=== PATIENT | female | born 1985 | race Caucasian/White ===

== ENCOUNTER 2017-01-17 16:16 | Emergency (ER) | payer SELFPAY ==
--- NOTE | 2017-01-17 16:33 | ED.PDOC ---
History of Present Illness - General Chief Complaint: Abdominal Pain Stated Complaint: abdominal pain Time Seen by Provider: 01/17/17 16:25 Information Source: patient, RN notes reviewed, Vital Signs reviewed Exam Limitations: no limitations - History of Present Illness Initial Comments: Patient comes in with c/o RLQ pain for the past 3 weeks. Getting worse. Last night had severe pain during intercourse with her . No fever or chills. + nausea, no vomiting. Diarrhea X 1 month. No urinary symptoms. No vaginal discharge. She also has been having R hip pain for about a month. It pops and grinds and feels like it is going to lock up. Abdominal Pain Onset Location: RUQ Pain Radiation: no radiation Quality: severe, dull, stabbing Timing/Duration: getting worse - over past 3 weeks Improving Factors: nothing Worsening Factors: movement, other - intercourse Associated Symptoms: diarrhea, nausea/vomiting Review of Systems - Review of Systems Constitutional: Denies: chills, fever, malaise EENTM: States: no symptoms reported Respiratory: States: no symptoms reported Cardiology: States: no symptoms reported Gastrointestinal/Abdominal: States: see HPI, abdominal pain, diarrhea, nausea. Denies: constipation, vomiting Genitourinary: States: no symptoms reported. Denies: discharge, dysuria, frequency Musculoskeletal: States: joint pain - R hip Skin: States: no symptoms reported Neurological: States: no symptoms reported. Denies: headache All other Systems: No Change from Baseline Past Medical History (General) - Patient Medical History Hx Seizures: No Hx Stroke: No Hx Dementia: No Hx Asthma: No Hx of COPD: No Hx Cardiac Disorders: No Hx Congestive Heart Failure: No Hx Pacemaker: No Hx Hypertension: No Hx Thyroid Disease: No Hx Diabetes: No Hx Gastroesophageal Reflux: No Hx Renal Disease: No Hx Cancer: No Hx of HIV: No Hx Hepatitis C: No Hx MRSA: No - Vaccination History Hx Tetanus, Diphtheria Vaccination: Yes Hx Influenza Vaccination: No Hx Pneumococcal Vaccination: No - Social History Hx Tobacco Use: No Hx Chewing Tobacco Use: No Hx Alcohol Use: No Hx Substance Use: No Hx Substance Use Treatment: No Hx Depression: Yes - not on medication Hx Physical Abuse: No Hx Emotional Abuse: No Hx Suspected Abuse: No - Female History Hx Last Menstrual Period: 06/10/12 Patient : No Expected Date of Delivery:: 03/17/13 Family Medical History - Family History Mother Family History: Unknown Living Status: Still Living Hx Family;Other: COPD Physical Exam - Physical Exam General Appearance: Alert, No apparent distress, Ill Appearing, Well Developed, Well Groomed, Well Hydrated, Well Nourished Neck: supple, normal inspection Respiratory: chest non-tender, lungs clear, normal breath sounds, no respiratory distress, no accessory muscle use Cardiovascular/Chest: regular rate, rhythm, no gallop, no JVD, no murmur Gastrointestinal/Abdominal: normal bowel sounds, soft, no organomegaly, no pulsatile mass, rebound - RLQ, tenderness - RLQ Pelvic Exam: normal external exam, tender w/ cervical motion, tender adnexa - bilaterally R>L Extremity: other - Pain in R hip with ROM Neurologic: no motor/sensory deficits, alert, normal mood/affect, oriented x 3 Skin Exam: normal color, warm/dry Progress - Progress Progress: 01/17/17 18:04 Discussed PID causes and treatment with patient. Will give first doses of antibiotics here. Discussed normal hip x-ray and that her pain is most likely ligamentous and recommended ice, heat, rest and ibuprofen. - Results/Orders Results/Orders: Laboratory Tests 01/17/17 01/17/17 01/17/17 16:20 16:20 17:10 WBC 11.1 H RBC 5.14 Hgb 14.9 Hct 44.0 MCV 85.7 MCH 29.0 MCHC 33.9 RDW 12.6 Plt Count 271 MPV 8.5 Absolute Neuts (auto) 6.80 Absolute Lymphs (auto) 3.20 Absolute Monos (auto) 0.80 Absolute Eos (auto) 0.10 Absolute Basos (auto) 0.10 Neutrophils % 61.4 Lymphocytes % 29.0 Monocytes % 7.7 Eosinophils % 1.3 Basophils % 0.6 Sodium Potassium Chloride Carbon Dioxide Anion Gap BUN Creatinine BUN/Creatinine Ratio Random Glucose Serum Osmolality Calcium Total Bilirubin AST ALT Alkaline Phosphatase Serum Total Protein Albumin Globulin Albumin/Globulin Ratio Urine Color Yellow Urine Appearance Clear Urine pH 5.5 Ur Specific [place] 1.025 Urine Protein Negative Urine Glucose (UA) Negative Urine Ketones Negative Urine Blood Small H Urine Nitrite Negative Urine Bilirubin Negative Urine Urobilinogen 0.2 Ur Leukocyte Esterase Negative Urine RBC 1-3 Urine WBC 1-3 Ur Epithelial Cells 5-10 Amorphous Sediment 1+ Urine Bacteria 1+ Urine HCG, Qual Negative 01/17/17 17:10 WBC RBC Hgb Hct MCV MCH MCHC RDW Plt Count MPV Absolute Neuts (auto) Absolute Lymphs (auto) Absolute Monos (auto) Absolute Eos (auto) Absolute Basos (auto) Neutrophils % Lymphocytes % Monocytes % Eosinophils % Basophils % Sodium 136 Potassium 3.7 Chloride 100 L Carbon Dioxide 27 Anion Gap 12.7 BUN 9 Creatinine 0.63 BUN/Creatinine Ratio 14.3 Random Glucose 84 Serum Osmolality 269.8 L Calcium 9.4 Total Bilirubin 0.8 AST 21 ALT 17 Alkaline Phosphatase 52 Serum Total Protein 9.2 H Albumin 5.1 Globulin 4.1 H Albumin/Globulin Ratio 1.2 Urine Color Urine Appearance Urine pH Ur Specific [place] Urine Protein Urine Glucose (UA) Urine Ketones Urine Blood Urine Nitrite Urine Bilirubin Urine Urobilinogen Ur Leukocyte Esterase Urine RBC Urine WBC Ur Epithelial Cells Amorphous Sediment Urine Bacteria Urine HCG, Qual - EKG/XRAY/CT XRAY: hip - normal per Radiologist Departure - Departure Clinical Impression: Pelvic inflammatory disease (PID), Acute right hip pain Time of Disposition: 18:11 Disposition: Discharge to Home or Self Care Condition: Fair Departure Forms: ED Discharge - Pt. Copy, Patient Portal Self Enrollment Instructions: DI for Pelvic Inflammatory Disease Diet: resume usual diet Activity: increase activity as tolerated Referrals: Charlene Diaz NP [Primary Care Provider] - 1-2 Weeks Prescriptions: Doxycycline Hyclate 100 mg PO BID #28 cap metroNIDAZOLE [Flagyl] 500 mg PO BID #28 tab Home Medications: Ambulatory Orders Cyclobenzaprine HCl [Flexeril] 5 mg PO TID PRN #9 tab 03/01/14 Ibuprofen [Motrin] 600 mg PO Q8H PRN #15 tab 03/01/14 Ondansetron Tab [Zofran Tab] 4 mg PO BID PRN #8 tab 03/01/14 Ciprofloxacin [Cipro] 500 mg PO BID #20 tab 03/02/14 Hyoscyamine Sulfate [Levsin] 0.125 mg PO TID #30 tab 03/02/14 Phenazopyridine HCl [Pyridium] 200 mg PO TID #10 tab 09/20/15 Sulfamethoxazole-Trimethoprim [Bactrim Ds 800-160 mg] 1 tab PO BID #20 tab 09/19 Doxycycline Hyclate 100 mg PO BID #28 cap 01/17/17 metroNIDAZOLE [Flagyl] 500 mg PO BID #28 tab 01/17/17
[2017-01-17 16:56] VITALS: TEMP 98.5
--- NOTE | 2017-01-17 17:39 | RAD ---
EXAM DESCRIPTION: Hip,Right 2 Views CLINICAL HISTORY: R hip pain COMPARISON: None. TECHNIQUE: 2 views right FINDINGS: I see no bone joint or soft tissue abnormality. IMPRESSION: Normal right hip. Electronically signed by: Griffin Brito MD 01/17/2017 5:38 PM CDT
[2017-01-17] MEDS ORDERED: metroNIDAZOLE 500 MG TAB PO ONE (18:06)
[2017-01-17] MEDS ORDERED: DOXYCYCLINE HYCLATE CAP 100 MG CAP PO ONE (18:06)
[2017-01-17] MEDS ORDERED: LIDOCAINE 1% 10 ML VIAL INJ ONE (18:10)
[2017-01-17 18:29] VITALS: BP 106/70; O2SAT 98
== END 2017-01-17 18:39 | disposition home or self-care (01) ==
LOC: ER 16:16
DX: N73.9 Female pelvic inflammatory disease, unspecified (principal); M25.551 Pain in right hip
CPT/HCPCS: 73502; 80053; 81001; 81025; 85025; 87210; 87491; 87591; J0696

== ENCOUNTER 2017-05-06 07:27 | Emergency (ER) | payer SELFPAY ==
[2017-05-06 07:42] VITALS: TEMP 98.9
[2017-05-06] MEDS ORDERED: KETOROLAC TROMETHAMINE INJ 30 MG/ML VIAL IM ONE (07:59)
[2017-05-06] MEDS ORDERED: ALUM & MAG HYDROX-SIMETHICONE 30 ML, LIDOCAINE VISCOUS 2% 15 ML PO ONE ×2 (08:05)
[2017-05-06] MEDS ORDERED: LIDOCAINE HCL 2% (MOUTH-THROAT) 15 ML UD ONE (08:09)
[2017-05-06] MEDS ORDERED: ALUM & MAG HYDROX-SIMETHICONE 30 ML UD ONE (08:09)
[2017-05-06] MEDS ORDERED: CIPROFLOXACIN 500 MG TAB PO ONE (08:23)
[2017-05-06] MEDS ORDERED: cefTRIAXone SODIUM 1 GM VIAL IM ONE (08:23)
--- NOTE | 2017-05-06 08:30 | ED.PDOC ---
History of Present Illness - General Chief Complaint: Abdominal Pain Stated Complaint: RLQ pain, right flank pain, painful urination Time Seen by Provider: 05/06/17 07:43 Source: patient Exam Limitations: no limitations - History of Present Illness Initial Comments: the patient is a 32-year-old female presenting to the emergency room secondary to 24 hours of suprapubic discomfort along with urinary frequency and severe dysuria. She has been taking some AZO and ibuprofen with minimal relief. She has had urinary tract infections in the past. The pain is a little more towards the right side and then center. She has already had her appendix out in the past. She does have a history of irritable bowel syndrome. She also has a history of gastritis but most of the abdominal discomfort is in the lower abdomen rather than upper. No nausea or vomiting. No fevers. No vaginal discharge. No itching. No rebound or peritoneal signs. Timing/Duration: 24 hours Severity: moderate Improving Factors: nothing Worsening Factors: nothing Associated Symptoms: malaise Allergies/Adverse Reactions: Allergies NO KNOWN ALLERGY Allergy (Verified 05/06/17 07:41) Home Medications: Ambulatory Orders Cyclobenzaprine HCl [Flexeril] 5 mg PO TID PRN #9 tab 03/01/14 Ibuprofen [Motrin] 600 mg PO Q8H PRN #15 tab 03/01/14 Ondansetron Tab [Zofran Tab] 4 mg PO BID PRN #8 tab 03/01/14 Ciprofloxacin [Cipro] 500 mg PO BID #20 tab 03/02/14 Hyoscyamine Sulfate [Levsin] 0.125 mg PO TID #30 tab 03/02/14 Phenazopyridine HCl [Pyridium] 200 mg PO TID #10 tab 09/20/15 Sulfamethoxazole-Trimethoprim [Bactrim Ds 800-160 mg] 1 tab PO BID #20 tab 09/19 Doxycycline Hyclate 100 mg PO BID #28 cap 01/17/17 metroNIDAZOLE [Flagyl] 500 mg PO BID #28 tab 01/17/17 Cephalexin Monohydrate [Keflex] 500 mg PO Q8H #20 cap 05/06/17 Ciprofloxacin [Cipro] 500 mg PO BID #14 tab 05/06/17 Famotidine 20 mg PO DAILY #30 tab 05/06/17 Review of Systems - Review of Systems Constitutional: States: no symptoms reported EENTM: States: no symptoms reported Respiratory: States: no symptoms reported Cardiology: States: no symptoms reported Gastrointestinal/Abdominal: States: see HPI Genitourinary: States: dysuria, frequency, pain Musculoskeletal: States: no symptoms reported Skin: States: no symptoms reported Neurological: States: no symptoms reported Endocrine: States: no symptoms reported All other Systems: No Change from Baseline Past Medical History (General) - Patient Medical History Hx Seizures: No Hx Stroke: No Hx Dementia: No Hx Asthma: No Hx of COPD: No Hx Cardiac Disorders: No Hx Congestive Heart Failure: No Hx Pacemaker: No Hx Hypertension: No Hx Thyroid Disease: No Hx Diabetes: No Hx Gastroesophageal Reflux: No Hx Renal Disease: No Hx Cancer: No Hx of HIV: No Hx Hepatitis C: No Hx MRSA: No Surgical History: appendectomy, cholecystectomy - Vaccination History Hx Tetanus, Diphtheria Vaccination: Yes Hx Influenza Vaccination: No Hx Pneumococcal Vaccination: No - Social History Hx Tobacco Use: No Hx Chewing Tobacco Use: No Hx Alcohol Use: No Hx Substance Use: No Hx Substance Use Treatment: No Hx Depression: Yes - not on medication Hx Physical Abuse: No Hx Emotional Abuse: No Hx Suspected Abuse: No - Female History Hx Last Menstrual Period: 06/10/12 Patient : No Expected Date of Delivery:: 03/17/13 Family Medical History - Family History Mother Family History: Unknown Living Status: Still Living Hx Family;Other: COPD Physical Exam - Physical Exam General Appearance: Alert Eye Exam: bilateral normal Ears, Nose, Throat: normal ENT inspection, normal pharynx Neck: supple Respiratory: no respiratory distress, no accessory muscle use Cardiovascular/Chest: normal peripheral pulses, no edema Peripheral Pulses: radial,right: 2+, radial,left: 2+ Gastrointestinal/Abdominal: other - [id number] suprapubic discomfort palpation. No definite palpable mass. Previous surgery scars are noted. 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 Urinalysis is consistent with this with a significant amount of bacteria seen. Urine will be cultured. The patient is being given a dose of Rocephin IM and oral ciprofloxacin here. She'll be continued on oral Keflex and ciprofloxacin for the next week. She needs to follow up with her primary care doctor for a test of cure in approximately one week. Additionally she can follow up with them for her culture results. She needs to increase her fluid intake. Motrin can be used for discomfort. Azo can also be continued for discomfort. ER warnings were given for any significant worsening. Obviously if the patient failed to improve or worsened, then additional workup would be warranted. Departure - Departure Clinical Impression: Cystitis Disposition: Discharge to Home or Self Care Condition: Fair Departure Forms: ED Discharge - Pt. Copy, Patient Portal Self Enrollment Instructions: DI for Urinary Tract Infection (UTI) Diet: regular diet Activity: increase activity as tolerated Referrals: Charlene Diaz NP [Primary Care Provider] - 1-2 Weeks Prescriptions: Cephalexin Monohydrate [Keflex] 500 mg PO Q8H #20 cap Ciprofloxacin [Cipro] 500 mg PO BID #14 tab Famotidine 20 mg PO DAILY #30 tab Home Medications: Ambulatory Orders Cyclobenzaprine HCl [Flexeril] 5 mg PO TID PRN #9 tab 03/01/14 Ibuprofen [Motrin] 600 mg PO Q8H PRN #15 tab 03/01/14 Ondansetron Tab [Zofran Tab] 4 mg PO BID PRN #8 tab 03/01/14 Ciprofloxacin [Cipro] 500 mg PO BID #20 tab 03/02/14 Hyoscyamine Sulfate [Levsin] 0.125 mg PO TID #30 tab 03/02/14 Phenazopyridine HCl [Pyridium] 200 mg PO TID #10 tab 09/20/15 Sulfamethoxazole-Trimethoprim [Bactrim Ds 800-160 mg] 1 tab PO BID #20 tab 09/19 Doxycycline Hyclate 100 mg PO BID #28 cap 01/17/17 metroNIDAZOLE [Flagyl] 500 mg PO BID #28 tab 01/17/17 Cephalexin Monohydrate [Keflex] 500 mg PO Q8H #20 cap 05/06/17 Ciprofloxacin [Cipro] 500 mg PO BID #14 tab 05/06/17 Famotidine 20 mg PO DAILY #30 tab 05/06/17 Additional Instructions: the patient's a 32-year-old female presenting to emergency room with what appears to be a significant cystitis of relatively short duration. Urinalysis is consistent with this with a significant amount of bacteria seen. Urine will be cultured. The patient is being given a dose of Rocephin IM and oral ciprofloxacin here. She'll be continued on oral Keflex and ciprofloxacin for the next week. She needs to follow up with her primary care doctor for a test of cure in approximately one week. Additionally she can follow up with them for her culture results. She needs to increase her fluid intake. Motrin can be used for discomfort. Azo can also be continued for discomfort. ER warnings were given for any significant worsening. Obviously if the patient failed to improve or worsened, then additional workup would be warranted. The patient is also going to be written for some famotidine to take while she is taking the antibiotics given her history of gastrointestinal disequilibrium.
[2017-05-06 09:13] VITALS: BP 120/57; O2SAT 97
== END 2017-05-06 09:00 | disposition home or self-care (01) ==
LOC: ER 07:27
DX: N30.90 Cystitis, unspecified without hematuria (principal)
CPT/HCPCS: 81001; 81025; 87086; 87088; 87186; J0696; J1885